=== PATIENT | female | born 1950 | race Hispanic/Latino ===

== ENCOUNTER 2018-02-17 08:59 | Day surgery (SDC) | payer OTHER ==
[~2018-02-17] VITALS: Ht 167.6 cm; Wt 89.8 kg
[~2018-02-17 08:59] MED LIST: NIFE30TA91 PO
[2018-02-17 09:25] VITALS: BP 120/76
[2018-02-17] MEDS ORDERED: SODIUM CHLORIDE 0.9% 1000ML 1,000 ML IV ONE (09:45)
[2018-02-17 10:39] VITALS: BP 103/54
== END 2018-02-17 11:12 | disposition home or self-care (01) ==
LOC: DAH 08:59 → SUH 08:59
PROVIDERS: ATTEND Internal Medicine Gastroenterology
DX: Z12.11 Encounter for screening for malignant neoplasm of colon (principal); K29.50 Unspecified chronic gastritis without bleeding; K21.0 Gastro-esophageal reflux disease with esophagitis; Z68.39 Body mass index [BMI] 39.0-39.9, adult; I10 Essential (primary) hypertension; Z90.49 Acquired absence of other specified parts of digestive tract; Z79.899 Other long term (current) drug therapy; Z98.890 Other specified postprocedural states; Z88.8 Allergy status to other drugs, medicaments and biological substances
CPT/HCPCS: 43239; G0121; 88305; 88312; 93005; A4606; J7030